=== PATIENT | female | born 2000 | race Two or more races ===

== ENCOUNTER 2020-05-31 16:41 | Emergency (ER) | payer SELFPAY ==
[~2020-05-31] VITALS: Ht 154.9 cm; Wt 75.5 kg
[2020-05-31 16:59] VITALS: Ht 154.9 cm; Wt 75.5 kg
[2020-05-31] MEDS ORDERED: [UNRECOGNIZED DRUG - REMARK] (17:02)
[2020-05-31 18:12] LABS: BASOPHILS 0.2 % (0-2); EOSINOPHILS 0.7 % (0-7); HEMATOCRIT 39.2 % (36.0-48.0); HEMOGLOBIN 13.4 g/dL (12-16); IMMATURE GRANULOCYTES 0.2 % (0-5); LYMPHOCYTES 16.2 % (15-50); MCH 31.1 pg (26.0-34.0); MCHC 34.2 g/dL (31.0-37.0); MEAN PLATELET VOLUME 9.5 fL (7.4-10.4); NEUTROPHILS 76.7 % (40-80); PLATELET COUNT 300 10x3/uL (130-400); RBC 4.31 10x6/uL (4.00-5.40); RDW 12.4 % (11.5-14.5); WBC 13.9 10x3/uL (4.8-10.8)
[2020-05-31 18:29] LABS: HCG SERUM NEGATIVE (NEGATIVE)
[2020-05-31 18:30] LABS: ALBUMIN 4.2 g/dL (3.4-5.0); ALKALINE PHOSPHATASE 81 U/L (30-120); ALT (SGPT) 22 U/L (10-68); BILIRUBIN - TOTAL 0.49 mg/dL (0.2-1.3); CALC OSMOLALITY 279 mosm/kg (275-300); CALCIUM 9.1 mg/dL (8.5-10.1); CARBON DIOXIDE 26.9 mmol/L (21.0-32.0); CHLORIDE - SERUM 102 mmol/L (98-107); CREATININE - SERUM 0.8 mg/dL (0.6-1.3); GLUCOSE 126 mg/dL (74-106); PROTEIN - SERUM 8.2 g/dL (6.4-8.2); SODIUM 139 mmol/L (136-145); UREA NITROGEN 12 mg/dL (7-18); eGFR NON AFRICAN AMERICAN > 90 mL/min (90-120)
[2020-05-31 18:31] LABS: POTASSIUM - SERUM 2.9 mmol/L (3.5-5.1)
[2020-05-31 20:35] VITALS: BP 111/63
== END 2020-05-31 20:35 | disposition home or self-care (01) ==
LOC: D.ER 16:41
PROVIDERS: Family Medicine
DX: S00.83XA Contusion of other part of head, initial encounter (principal); S00.512A Abrasion of oral cavity, initial encounter; W19.XXXA Unspecified fall, initial encounter; Y93.9 Activity, unspecified; Y92.9 Unspecified place or not applicable